=== PATIENT | male | born 1990 | race Caucasian/White ===

== ENCOUNTER 2022-12-04 11:01 | Outpatient (CLI) | payer OTHER, SELFPAY ==
[2022-12-04 19:24] LABS: Hematocrit 46.4 % (42.0-52.0); Hemoglobin 15.1 g/dL (14.0-18.0); Mean Corpuscular HGB Conc 32.5 g/dl (32-36); Mean Corpuscular Hemoglobin 29.7 pg (26-34); Mean Corpuscular Volume 91.3 fl (80-100); Platelet Count Result 253 k/mm3 (150-375); Red Blood Count 5.08 M/mm3 (4.6-6.20); Red Cell Distribution Width 12.5 % (11.5-14.5); White Blood Count 8.7 K/mm3 (4.5-10.0)
[2022-12-04 20:52] LABS: Alanine Aminotransferase 29 U/L (6-50); Albumin Level 4.9 g/dL (3.5-5.1); Alkaline Phosphatase 90 U/L (38-126); Anion Gap 8 mmol/L (8-16); Aspartate Amino Transferase 34 U/L (17-59); Bilirubin,Total 0.6 mg/dL (0.2-1.3); Blood Urea Nitrogen 13 mg/dL (9-20); Calcium 9.1 mg/dL (8.4-10.2); Carbon Dioxide 31 mmol/L (22-30); Chloride 100 mmol/L (98-107); Cholesterol 176 mg/dL (0-200); Estimated Glomerular Filt Rate > 60; Glucose 93 mg/dL (65-110); HDL Direct 27 mg/dL; Sodium 139 mmol/L (137-145); Triglycerides 206 mg/dL (<150)
[2022-12-04 21:03] LABS: LDL Cholesterol Direct 92 mg/dL
== END 2022-12-04 11:02 | disposition home or self-care (01) ==
PROVIDERS: PCP Family Medicine; Visit Provider Family Medicine
DX: Z00.00 Encounter for general adult medical examination without abnormal findings (principal)
CPT/HCPCS: 36415; 80053; 80061; 85027

== ENCOUNTER 2023-10-05 11:21 | Outpatient (CLI) | payer OTHER, SELFPAY | END 2023-10-05 11:22 | disposition home or self-care (01) | LOC: ANHBWCLAB 11:22 | PROVIDERS: PCP Nurse Practitioner Adult Health; Visit Provider Nurse Practitioner Adult Health | DX: B83.9 Helminthiasis, unspecified (principal) | CPT/HCPCS: 87045; 87427; 87449 ==

== ENCOUNTER 2023-12-07 09:04 | Outpatient (CLI) | payer OTHER, SELFPAY ==
[2023-12-07 19:06] LABS: Hematocrit 46.5 % (42.0-52.0); Mean Corpuscular HGB Conc 32.3 g/dl (32-36); Mean Corpuscular Hemoglobin 29.7 pg (26-34); Mean Corpuscular Volume 92.1 fl (80-100); Mean Platelet Volume 10.9 fl (7.4-10.4); Platelet Count Result 284 k/mm3 (150-375); Red Blood Count 5.05 M/mm3 (4.6-6.20); Red Cell Distribution Width 12.2 % (11.5-14.5); White Blood Count 9.1 K/mm3 (4.5-10.0)
[2023-12-07 19:29] LABS: Alanine Aminotransferase 25 U/L (6-50); Albumin Level 4.7 g/dL (3.5-5.1); Alkaline Phosphatase 85 U/L (38-126); Anion Gap 8 mmol/L (8-16); Aspartate Amino Transferase 30 U/L (17-59); Bilirubin,Total 0.7 mg/dL (0.2-1.3); Blood Urea Nitrogen 11 mg/dL (9-20); Calcium 9.3 mg/dL (8.4-10.2); Carbon Dioxide 30 mmol/L (22-30); Chloride 102 mmol/L (98-107); Cholesterol 167 mg/dL (0-200); Estimated Glomerular Filt Rate > 60; Glucose 93 mg/dL (65-110); HDL Direct 22 mg/dL; Potassium 4.1 mmol/L (3.4-5.0); Sodium 140 mmol/L (137-145); Triglycerides 277 mg/dL (<150)
[2023-12-07 19:41] LABS: LDL Cholesterol Direct 90 mg/dL
== END 2023-12-07 09:05 | disposition home or self-care (01) ==
LOC: ANHBWCLAB 09:05
PROVIDERS: PCP Nurse Practitioner Adult Health; Visit Provider Nurse Practitioner Adult Health
DX: Z13.9 Encounter for screening, unspecified (principal)
CPT/HCPCS: 36415; 80053; 80061; 85027

== ENCOUNTER 2024-12-08 08:29 | Outpatient (CLI) | payer OTHER, SELFPAY ==
[2024-12-08 19:29] LABS: Alanine Aminotransferase 34 U/L (6-50); Albumin Level 4.3 g/dL (3.5-5.1); Alkaline Phosphatase 84 U/L (38-126); Anion Gap 6 mmol/L (4-12); Aspartate Amino Transferase 43 U/L (17-59); Bilirubin,Total 0.7 mg/dL (0.2-1.3); Blood Urea Nitrogen 18 mg/dL (9-20); Calcium 8.9 mg/dL (8.4-10.2); Carbon Dioxide 28 mmol/L (22-30); Chloride 106 mmol/L (98-107); Cholesterol 166 mg/dL (0-200); Estimated Glomerular Filt Rate > 60; Glucose 88 mg/dL (65-110); HDL Direct 27 mg/dL; Potassium 4.4 mmol/L (3.4-5.0); Sodium 140 mmol/L (137-145); Triglycerides 131 mg/dL (<150)
[2024-12-08 19:40] LABS: LDL Cholesterol Direct 105 mg/dL
--- OUTSIDE RECORDS SUMMARY | 2024-12-15 01:40 | XMS_ITS | Clinical Summary ---
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 30 Capsule 2 Active albuterol sulfate 90 mcg/Actuation inhalerIndicati ons:Other cough,Shortness of breath Take 2 Puffs by inhalation every 4 hours as needed for Shortness of Breath. 18 Gram 2 Active Active Problems Problem Noted Date Diagnosed Date Heart murmur 10/06/2019 Nonallergic rhinitis 12/21/2017 Encounters Date Type Department Care Team Description 09/26/2024 External Device Data [facility] ABSTRACTION Provider, Abstract from Last 3 Months Immunizations Immunization Administration Dates Next Due (TDVAX)(7 YRS UP) TETANUS AN D DIPHTHERIA TOXOIDS, ADSORBED (2 LF OF TETANUS TOXOID AND 2 LF OF DIPHTHERIA TOXOID), 0.5ML (PF), IM 06/20/2005 INFLUENZA VACCINE TRIVALENT SPLIT VIRUS, (6 MOS UP), 0.5ML (PF), IM 08/31/2024 Family History Medical History Relation Name Comments No Known Problems Brother 1 No Known Problems Brother 2 Hypertension Father No Known Problems Maternal Grandfather Unknown Maternal Grandmother Diabetes Mother No Known Problems Paternal Grandmother No Known Problems Sister Relation Name Status Comments Brother 1 Alive Brother 2 Alive Father Alive Maternal Grandfather Alive Maternal Grandmother Mother Alive Paternal Grandfather Paternal Grandmother Alive Sister Alive Social History Tobacco Use Types Packs/Day Years Used Date Smoking Tobacco: Never Smokeless Tobacco: Never Alcohol Use Standard Drinks/Week Comments Yes 0 (1 standard drink = 0.6 oz pur e alcohol) Sex and Gender Information Value Date Recorded Sex Assigned at Not on file Legal Sex Male 3:02 AM CDT Gender Identity Not on file Sexual Orientation Not on file Last Filed Vital Signs Vital Sign Reading Time Taken Comments Blood Pressure 126/74 06/01/2024 9:37 AM CDT Pulse 98 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 Temperature 37 ??C (98.6 ??F) 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 Respiratory Rate 20 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 Oxygen Saturation 96% 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 Inhaled Oxygen Concentration - - Weight 121.6 kg (268 lb) 06/01/2024 9:37 AM CDT Height 190.5 cm (6' 3 ) 06/01/2024 9:37 AM CDT Body Mass Index 33.5 06/01/2024 9:37 AM CDT Plan of Treatment Health Maintenance Due Date Last Done Comments DTAP/TDAP/TD VACCINES (2 - Tdap) 06/21/2005 06/20/2005 HEPATITIS B VACCINES (1 of 3 - 19+ 3-dose series) 2010 INFLUENZA VACCINE Completed 08/31/2024, 10/06/2019 HPV VACCINES Aged Out No longer eligi ble based on patient's age to complete this topic PNEUMOCOCCAL VACCINE 0-64 YEARS Aged Out No longer eligible b ased on patient's age to complete this topic Insurance * Guarantor: [employer]) Account Type Relation to Patient Date of Phone Billing Address Corporate Employer ATTN: [employer] PAGAN [id number] [address] [place] OPEN ACCESS Care Teams Vinyl Flooring Installer Relationship Specialty Start Date End Date Bao Quinn MD [address] [place] [id number] PCP - General Family Practice 06/02/24
== END 2024-12-08 08:30 | disposition home or self-care (01) ==
LOC: ANHBWCLAB 08:30
PROVIDERS: PCP Nurse Practitioner Adult Health; Visit Provider Nurse Practitioner Adult Health
DX: Z13.9 Encounter for screening, unspecified (principal)
CPT/HCPCS: 36415; 80053; 80061